=== PATIENT | male | born 1960 ===

== ENCOUNTER 2018-11-20 09:18 | Outpatient (CLI) | payer SELFPAY | END 2018-12-10 10:31 | disposition home or self-care (01) | LOC: C.MRIC 09:19 | DX: R10.2 Pelvic and perineal pain (principal) ==

== ENCOUNTER 2018-12-17 14:46 | Outpatient (CLI) | payer SELFPAY | END 2018-12-17 14:47 | disposition home or self-care (01) | LOC: C.MRIC 14:46 | DX: R10.2 Pelvic and perineal pain (principal) ==